=== PATIENT | male | born 2000 | race Caucasian/White ===

== ENCOUNTER 2020-05-08 04:39 | Emergency (ER) | payer OTHER ==
[~2020-05-08] VITALS: Ht 182.9 cm; Wt 82.7 kg
[2020-05-08] MEDS ORDERED: IV NORMAL SALINE 1000ML BAG 1,000 ML IV ONE ×2 (05:00→05:30)
[2020-05-08] MEDS ORDERED: ACETAMINOPHEN 325 MG TABLET. PO ONE (05:00)
--- NOTE | 2020-05-08 05:07 | PHYS DOC ---
Past Medical History Past Medical History: No Pertinent History (CHARISSA SMITH DO) Past Surgical History: No Surgical History (CHARISSA SMITH DO) Smoking Status: Never Smoker Alcohol Use: None (CHARISSA SMITH DO) General Adult EDM: Chief Complaint: ABDOMINAL PAIN HPI: HPI: Patient is a 20 year old male with a past medical history of ADHD presents with a chief complaint of diffuse abdominal pain associated with nausea and vomiting fever with a T-max of 102 cough and shortness of breath. Patient states all symptoms have been ongoing since last Friday. Patient states last Friday he was evaluated by her primary care physician and on he was evaluated at [facility] [place], [place]. Patient states he has had 2 - Covid test-- last was performed on . (CHARISSA SMITH DO) Review of Systems: Review of Systems: Constitutional: Positive fever Eyes: Denies change in visual acuity. [] HENT: Denies nasal congestion or sore throat. [] Respiratory: Positive shortness of breath positive cough Cardiovascular: Denies chest pain or edema. [] GI: As it of abdominal pain positive nausea positive vomiting : Denies dysuria. [] Musculoskeletal: Denies back pain or joint pain. [] Integument: Denies rash. [] Neurologic: Denies , focal weakness or sensory changes. [Positive headache] Endocrine: Denies polyuria or polydipsia. [] Lymphatic: Denies swollen glands. [] Psychiatric: Denies depression or anxiety. [] (CHARISSA SMITH DO) Heart Score: Risk Factors: Risk Factors: DM, Current or recent (<one month) smoker, HTN, HLP, family history of CAD, obesity. Risk Scores: Score 0 - 3: 2.5% MACE over next 6 weeks - Discharge Home Score 4 - 6: 20.3% MACE over next 6 weeks - Admit for Clinical Observation Score 7 - 10: 72.7% MACE over next 6 weeks - Early Invasive Strategies (CHARISSA SMITH DO) Current Medications: Current Medications Medications (Trade) Dose Ordered Sig/Lindsay Start Time Stop Time Status Last Admin Dose Admin Acetaminophen (Tylenol) 650 mg 1X ONCE 05/08/20 05:00 05/08/20 05:01 DC Sodium Chloride 1,000 ml @ 1,000 mls/hr 1X ONCE 05/08/20 05:00 05/08/20 05:59 (CHARISSA SMITH DO) Allergies: Allergies: Allergies Coded Allergies Type Severity Reaction Last Updated Verified Unable to Assess 05/08/20 No (CHARISSA SMITH DO) Physical Exam: PE: Constitutional: Well developed, well nourished, no acute distress, non-toxic appearance. [] HENT: Normocephalic, atraumatic, bilateral external ears normal, oropharynx moist, no oral exudates, nose normal. [] Eyes: PERRLA, EOMI, conjunctiva normal, no discharge. [] Neck: Normal range of motion, no tenderness, supple, no stridor. [] Cardiovascular:Heart rate regular rhythm, no murmur [] Lungs & Thorax: Bilateral breath sounds clear to auscultation [] Abdomen: Bowel sounds normal, soft, no tenderness, no masses, no pulsatile masses. [] Skin: Warm, dry, no erythema, no rash. [] Back: No tenderness, no CVA tenderness. [] Extremities: No tenderness, no cyanosis, no clubbing, ROM intact, no edema. [] Neurologic: Alert and oriented X 3, normal motor function, normal sensory function, no focal deficits noted. [] Psychologic: Affect normal, judgement normal, mood normal. [] (CHARISSA SMITH DO) Current Patient Data: Vital Signs: Vital Signs Date Time Temp Pulse Resp B/P (MAP) Pulse Ox O2 Delivery O2 Flow Rate FiO2 05/08/20 04:42 99.8 103 12 151/80 (103) 95 Room Air 99.8 (CHARISSA SMITH DO) EKG: EKG: [] (CHARISSA SMITH DO) Radiology/Procedures: Radiology/Procedures: [] (CHARISSA SMITH DO) Course & Med Decision Making: Course & Med Decision Making Pertinent Labs and Imaging studies reviewed. (See chart for details) [] Patient was evaluated for chief complaint. After initial examination CBC CMP lipase UA and CT abdomen and chest x-ray ordered. Patient signed out to Dr. Flaherty at shift change disposition pending reevaluation labs and radiologic imaging. Treatment included IV fluids. (CHARISSA SMITH DO) Course & Med Decision Making Assumed care of patient from Dr. Smith at checkout. At checkout CT abdomen pelvis was pending. CT is suggestive of viral pneumonia consistent with coronavirus. While patient has had multiple negative tests the tests are not very sensitive. I have discussed the results with the patient. At this time he is stable for discharge. Patient's test results and vitals while in the ED were fully reviewed and discussed with the patient. Patient is stable and at this time does not need admission to the hospital. We have discussed strict return precautions and the importance of following up with their Primary Care Physician. Patient stated understanding and was given an opportunity to ask any questions. Patient is in agreement with plan. (ANDREW CASTILLO MD) Course & Med Decision Making Incorrectly assigned to patient's chart. Dr. Smith signed out to Dr. Castillo. I was not involved in care of patient. (RASHAUN FLAHERTY DO) Dragon Disclaimer: William Disclaimer: This electronic medical record was generated, in whole or in part, using a voice recognition dictation system. (CHARISSA SMITH I DO) Departure Departure Impression: Primary Impression: Viral illness Additional Impressions: Abdominal pain Person under investigation for COVID-19 Disposition: 01 DC HOME SELF CARE/HOMELESS Patient Instructions: Fever Additional Instructions: Thank you for visiting [facility]. We appreciate you trusting us with your care. If any additional problems come up please don't hesitate to return to visit us. Follow up with your primary care provider so they can plan additional care if needed and know about the problem that you had today. If symptoms worsen come back to the Emergency Department. Any concerning symptoms that start such as chest pain, shortness of air, weakness or numbness on one side of the body, running high fevers or any other concerning symptoms return to the ER. You have a viral syndrome which may include symptoms like muscle aches, fevers, chills, runny nose, cough, sneezing, sore throat, nausea, vomiting, or diarrhea. One of the potential viruses that you may have is SARS-CoV-2, the virus that causes COVID-19, also known as the Coronavirus. You are just as likely to have a different viral infection such as the common cold, flu, etc. Most patients with the Coronavirus have mild symptoms and recover on their own. Resting, staying hydrated, and sleep based on known cases can be helpful. As of todays visit, you are well enough to go home and treat your symptoms with oral fluids and over the counter medications. Coronavirus testing is not performed on most people with mild symptoms who are being discharged from the emergency department. If Coronavirus testing was performed today the results will not be available for possibly up to 3-4 days. If your result is positive you will be contacted. Please follow the following precautions at home: 1. Stay home except to get medical care. 2. As advised by the CDC, we recommend that you stay in your home and minimize contact with other people. We do not want you to spread the infection. 3. Those who are older or have significant medical issues may have more severe symptoms from this infection. We recommend self-isolation FOR AT LEAST 7 DAYS after your 1st day of symptoms. AFTER you feel better please wait AT LEAST ANOTHER WEEK before returning to regular activities and being around other people. 4. IF you become sicker and have difficulty breathing, chest pain, are unable to eat/drink, severe vomiting, diarrhea, or weakness you may need to return to the Emergency Department. 5. You should restrict activities outside of your home, except for getting medi dean care. DO NOT go to work, school, or public areas. Avoid using public transportation, ride sharing, or taxis. 6. Separate yourself from other people in your home. You should use a separate bathroom if possible. 7. Avoid sharing personal household items such as dishes, cups, eating utensils, towels, etc. 8. Clean all high touch surfaces every day (door knobs, counter tops, etc). Use a household cleaning spray or wipe per label instructions. 9. Clean your hands often. Wash your hands with soap and water for at least 20 seconds. 10. Cover your mouth and nose when you cough or sneeze. 11. Throw used tissues in the trash and immediately wash your hands. For additional resources please visit the CDC website or the [place] [facility] ([phone]), you may also call 211 for further information. Scripts Benzonatate (TESSALON PERLE) 100 Mg Capsule 1 CAP PO TID for cough, #21 CAP Prov: ANDREW CASTILLO MD 05/08/20 Ondansetron Hcl (ZOFRAN) 4 Mg Tablet 1 TAB PO PRN Q6-8HRS for nausea, #12 TAB Prov: ANDREW CASTILLO MD 05/08/20 CHARISSA SMITH DO May 08, 2020 05:07 ANDREW CASTILLO MD May 08, 2020 07:06 RASHAUN FLAHERTY DO May 10, 2020 00:42
[2020-05-08 05:18] LABS: BASO # 0.1 x10^3/uL (0.0-0.2); BASO % 1 % (0-3); EOS % 0 % (0-3); HEMATOCRIT 34.3 % (39.0-53.0); HEMOGLOBIN 11.7 g/dL (13.0-17.5); LYMPH # 1.1 x10^3/uL (1.0-4.8); LYMPH % 11 % (24-48); MEAN CORPUSCULAR HEMOGLOBIN 29 pg (25-35); MEAN CORPUSCULAR HGB CONC 34 g/dL (31-37); MEAN CORPUSCULAR VOLUME 84 fL (79-100); MONO # 0.4 x10^3/uL (0.0-1.1); MONO % 4 % (0-9); NEUT # 9.1 x10^3/uL (1.8-7.7); NEUT % 85 % (31-73); PLATELET COUNT 339 x10^3/uL (140-400); RED BLOOD COUNT 4.06 x10^6/uL (4.30-5.70); WHITE BLOOD COUNT 10.7 x10^3/uL (4.0-11.0)
[2020-05-08 05:40] LABS: INFLUENZA A PATIENT NEGATIVE (NEGATIVE); INFLUENZA B PATIENT NEGATIVE (NEGATIVE)
[2020-05-08 05:40] LABS: ALBUMIN 2.9 g/dL (3.4-5.0); ALBUMIN/GLOBULIN RATIO 0.6 (1.0-1.7); CALCIUM 8.7 mg/dL (8.5-10.1); GFR 95.3; POTASSIUM 3.6 mmol/L (3.5-5.1); TOTAL BILIRUBIN 0.7 mg/dL (0.2-1.0); TOTAL PROTEIN 7.9 g/dL (6.4-8.2)
[2020-05-08] MEDS ORDERED: CONTRAST GIVEN. MC PRN (06:00)
[2020-05-08] MEDS ORDERED: IOHEXOL 300 MG/ML 100ML VIAL. IV ONE (06:00)
--- NOTE | 2020-05-08 06:02 | RAD ---
AP chest. HISTORY: Cough, short of breath AP view was taken of the chest. Heart is normal in size. There is no effusion. There are hazy bilateral areas of infiltrate. Patient's taken a poor inspiration. IMPRESSION: 1. Mild hazy infiltrates. Electronically signed by: Black Persaud MD (05/08/2020 5:59 AM) [id number]
--- NOTE | 2020-05-08 06:27 | RAD ---
CT abdomen pelvis with contrast. HISTORY: Abdominal pain, nausea and vomiting CT abdomen pelvis was done using 75 mL Omnipaque 300 contrast. There is a trace of pleural effusion on each side. There are bilateral basilar infiltrates. Atypical or Covid pneumonia can have this pattern. Liver is normal in appearance. Gallbladder is nondistended. Spleen and adrenal glands are normal. Pancreas is normal. There is no mass or hydronephrosis in the kidneys. Bowel pattern is normal. Appendix is normal. There is no free fluid or free air. IMPRESSION: 1. Trace of pleural effusion on each side. 2. Bilateral lower lobe infiltrate suggesting pneumonia or viral pneumonia. 3. Normal appendix. 4. No bowel obstruction or other acute finding in the abdomen or pelvis. PQRS Compliance Statement: One or more of the following individualized dose reduction techniques were utilized for this examination: 1. Automated exposure control 2. Adjustment of the mA and/or kV according to patient size 3. Use of iterative reconstruction technique Electronically signed by: Black Persaud MD (05/08/2020 6:25 AM) [id number]
[2020-05-08] MEDS ORDERED: ONDA4TAB7 PO (07:28)
[2020-05-08] MEDS ORDERED: BENZ100C PO (07:28)
[2020-05-08 07:44] VITALS: BP 123/73
== END 2020-05-08 07:57 | disposition home or self-care (01) ==
LOC: ER 04:39
DX: B34.9 Viral infection, unspecified (principal); Z20.828 Contact with and (suspected) exposure to other viral communicable diseases; R10.84 Generalized abdominal pain; R11.2 Nausea with vomiting, unspecified; R50.9 Fever, unspecified; R06.02 Shortness of breath
CPT/HCPCS: 36415; 71045; 74177; 80053; 83690; 85025; 87804; 96360; 96361; 99285; J7030; Q9967